=== PATIENT | male | born 1955 | race Caucasian/White ===

== ENCOUNTER 2019-12-05 17:23 | Inpatient (IN) | payer OTHER, SELFPAY ==
[~2019-12-05] VITALS: Ht 180.3 cm; Wt 118.4 kg
--- NOTE | 2019-12-05 17:23 | NUR ---
CALLED TO TENT TO SCREEN PT. PT HERE W/ ALSO SICK. PT WEARING MASK. PT STATES CAME HOME MONDAY & WENT "STRAIGHT TO BED." STATES HE'S BEEN "INCAPACITATED" FOR THE PAST 7 DAYS. C/O BODY ACHES, OCCAS VERGARA, FATIGUE, DRY MOUTH, "NOT A LOT" OF COUGH, PAIN UPON DEEP INSPIRATION, & DECREASED APPETITE. DENIES FEVER, CHILLS, SWEATS, RUNNY NOSE, SORE THROAT, SOB, LOSS OF TASTE OR SMELL, OR N/V/D. DENIES TRAVEL. DENIES KNOWN COVID EXPOURE. WAS TESTED [facility]DAY @ [facility] [place] BUT RESULT STILL PENDING. ORAL GZKJ=309.3, HR PER PLETH=83, ROOM AIR SAT 90-91%. PT LEFT OUTSIDE PENDING ROOM. I RESPONDED WEARING PPE.
[2019-12-05 18:45] VITALS: Ht 180.3 cm; Wt 118.4 kg
--- NOTE | 2019-12-05 18:49 | NUR ---
PT A/O X4. RESP E/U. PT STATES HAVING SOB X1 WEKK AND WANTS TO BE CHECKED FOR COVID. NAD NOTED AT THIS TIME.
--- NOTE | 2019-12-05 19:39 | NUR ---
ASSUNING CARE OF PT AT THIS TIME. PT AWAKE AND ALERT. AA/OX4. RESP EVEN AND UNLABORED. DENIES CHEST PAIN OR SOB. LUNGS CTA. PT SAT 91% RA PER DR CELY INTERIANO ORDER KEEP PT ON RA FOR BLOOD GAS ORDER. PT ON MONITOR. CALL LIGHT WITH IN REACH. WILL CONT TO MONITOR.
[2019-12-05 20:10] LABS: PLATELET COUNT 177 x10^3mcL (130-400); RED CELL DISTRIBUTION WIDTH 13.2 % (11.5-14.5)
[2019-12-05 20:15] LABS: BASOPHIL % 0 % (0-2)
[2019-12-05 20:17] LABS: CALCIUM 8.4 mg/dL (8.5-10.1); CARBON DIOXIDE 25.1 mmol/L (21-32); CHLORIDE SERUM 100 mmol/L (98-107); CREATININE SERUM 1.1 mg/dL (0.7-1.3); GFR1 > 60 mL/min; GLUCOSE SERUM 98 mg/dL (74-106); POTASSIUM SERUM 3.6 mmol/L (3.5-5.1); SODIUM SERUM 136 mmol/L (136-145)
[2019-12-05 20:29] LABS: ALKALINE PHOSPHATASE 79 U/L (46-116); ALT/SGPT 33 U/L (16-63); AST/SGOT 53 U/L (15-37); BILIRUBIN TOTAL 0.73 mg/dL (0.20-1.00); LACTIC DEHYDROGENASE (LDH) 500 U/L (100-190); TOTAL PROTEIN, SERUM 7.4 g/dL (6.4-8.2)
[2019-12-05 20:35] LABS: ALBUMIN 2.9 g/dL (3.4-5.0)
--- NOTE | 2019-12-05 21:21 | NUR ---
PT AWAKE AND ALERT. RESP EVEN AND UNLABORED. PT DENIES CHEST PAIN OR SOB AT THIS TIME. PT GIVEN URINAL FOR URINE COLLECTION. PT ON FULL CM. IV INSERTED. SWABBED PER MD ORDER. AA/OX4. PT ON 4L NC NOW O2 SAT IS 95% MD AWARE. WILL CONT TO MONITOR.
--- NOTE | 2019-12-06 00:30 | NUR ---
PT RESTING IN POSITION OF COMFORT. AWAKE AND ALERT. RESP EVEN AND UNLABORED. PT ON FULL CM. PT ON 4L NC. MD AWARE. PT SPEAKING FULL AND COMPLETE SENTENCES. CALL LIGHT WITH IN REACH. WILL CONT TO MONITOR.
--- NOTE | 2019-12-06 00:35 | NUR ---
PT STILL UNABLE TO VOID. AWARE.
[2019-12-06 01:32] LABS: MAGNESIUM 2.5 mg/dL (1.8-2.4); PHOSPHOROUS 3.4 mg/dL (2.5-4.9)
[2019-12-06 01:45] LABS: CHOLESTEROL/HDL RATIO 4.2
--- NOTE | 2019-12-06 02:01 | NUR ---
PT RESTING IN POSITION OF COMFORT. EASILY AOUSABLE. AA/OX4. KALEY EVEN AND UNLABORED. MEDICATIONS GIVEN PER EMAR. PT ON FULL CM. PT ON 4L NC. WILL CONT TO MONITOR.
[2019-12-06 02:58] LABS: UA SPECIFIC GRAVITY >=1.030 (1.005-1.035); microscopic required? YES; urine erythrocyte NEGATIVE (NEGATIVE)
--- NOTE | 2019-12-06 03:06 | NUR ---
PT AWAKE AND ALERT. RESP EVEN AND U NLABORED. AA/OX4. REQUESTING FOR LIGHTS TO BE TURNED OFF. LIGHTS DIMMED. PT ON FULL CM. CALL LIGHT WITH IN REACH. DENIES CHEST PAIN, SOB AT THIS TIME. PT SPEAKING FULL AND COMPLETE SENTENCES. WILL CONT TO MONITOR.
--- NOTE | 2019-12-06 03:30 | NUR ---
CALLED TELE TO GIVE REPORT TOLD ANTHONY IRBY IS BUSY IN A PT ROOM PLEASE CALL BACK IN 10 MINS. WILL CONT TO MONITOR.
--- NOTE | 2019-12-06 03:45 | NUR ---
REPORT CALLED TO ANTHONY IRBY TO ASSUME CARE OF PT.
[2019-12-06 04:17] VITALS: BP 129/70
[2019-12-06 04:31] LABS: AMPHETAMINE QUAL UR NONE DETECTED (See below)
--- NOTE | 2019-12-06 04:32 | NUR ---
Admitted this 64y/o male from ED via [facility]. Alert and oriented x4. No SOB noted. On 4lpm via n/c. Denies pain. Denies n/v. Admission assessment done. Tele #41, NSR. Droplet isolation observed. Call light within reach.
[2019-12-06 07:24] LABS: BASOPHIL % 0.1 % (0-2); PLATELET COUNT 175 x10^3mcL (130-400)
[2019-12-06 07:51] LABS: CALCIUM 7.9 mg/dL (8.5-10.1); CARBON DIOXIDE 23.7 mmol/L (21-32); CHLORIDE SERUM 101 mmol/L (98-107); CREATININE SERUM 0.8 mg/dL (0.7-1.3); GFR1 > 60 mL/min; GLUCOSE SERUM 97 mg/dL (74-106); POTASSIUM SERUM 3.8 mmol/L (3.5-5.1); SODIUM SERUM 137 mmol/L (136-145)
[2019-12-06 08:00] LABS: ALKALINE PHOSPHATASE 68 U/L (46-116); ALT/SGPT 32 U/L (16-63); AST/SGOT 51 U/L (15-37); BILIRUBIN DIRECT 0.28 mg/dL (0.0-0.2); BILIRUBIN TOTAL 0.7 mg/dL (0.20-1.00); MAGNESIUM 2.3 mg/dL (1.8-2.4); PHOSPHOROUS 2.7 mg/dL (2.5-4.9); TOTAL PROTEIN, SERUM 6.6 g/dL (6.4-8.2)
[2019-12-06 08:05] LABS: ALBUMIN 2.6 g/dL (3.4-5.0); C REACTIVE PROTEIN 16.3 mg/dL (<=0.9)
--- NOTE | 2019-12-06 08:30 | NUR ---
PT ENDORSED BY NOC SHIFT RN, PT AXOX4. NO S/S OF DISTRESS OR DISCOMFOT. BREATHING EVEN ON 4LNC, SPO2 98% DIM BASES. SOB WITH AMBULATION. RAC 20G PATENT, INTACT. TELE 41 SR. BED IN LOW POSITION , BEDRAILS UPX2, CALL LIGHT WITHIN REACH.
[2019-12-06 09:35] VITALS: BP 116/71
--- NOTE | 2019-12-06 12:46 | NUR ---
PT RESTING. EYES CLOSED. NO S/S OF DISTRESS OR DISCOMFORT. BREATHING EVEN AND UNLABORED 4L NC SPO2 96% TELE 41 SR. IV PATENT, FLUSHED. BED IN LOW POSITION, BEDRAILS UPX2, CALL LIGHT WITHIN REACH.
[2019-12-06 13:20] VITALS: BP 132/81
--- NOTE | 2019-12-06 14:37 | NUR ---
RECEIVED PT LYING IN BED, AAOX4. NO C/O SOB. ON 4LPM/NC. DENIES CHEST PAIN/PRESSURE, SR ON THE MONITOR, HR AT 72. DENIES ABDOMINAL DISCOMFORT. IV SITE PATENT AND INTACT. SIDE RAILS UPX2. CALL LIGHT ON REACH. WILL CONT TO MONITOR
[2019-12-06 17:14] VITALS: BP 119/63
--- NOTE | 2019-12-06 18:30 | NUR ---
PT LYING IN BED, NO C/O PAIN AND SOB. IV SITE PATENT AND INTACT. NEEDS ARE ATTENDED. CALL LIGHT ON REACH. WILL CONT TO MONITOR
--- NOTE | 2019-12-06 19:02 | NUR ---
ENDROSED TO INCOMING NURSE BARBARA FOR CONTINUITY OF CARE
--- NOTE | 2019-12-06 19:10 | NUR ---
RECEIVED PATIENT FROM PREVIOUS SHIFT NURSE. PATIENT IN NO ACUTE DISTRESS. AWAKE, ALERT AND ORIENTED X4. TELE #[address], NSR. PATIENT HAS EVEN AND UNLABORED BREATHING. DENIES ANY SOB. INSTRUCTED THE PATIENT ON SOME BREATHING MEASURES TO RELIEVE IF HE BEGINS TO FEEL SOB. ON 4L NC. NO C/O PAIN AT THIS MOMENT. PATIENT ALSO DENIES ANY CHEST PAON OR CHEST PRESSURE. RAC WNL. NO ERYTHEMA/EDEMA AT IV SITE. BED IN LOWEST POSITION. CALL LIGHT WITHIN REACH.
[2019-12-07] VITALS (7 sets, daily range): BP systolic 105–145; BP diastolic 56–77
--- NOTE | 2019-12-07 01:50 | NUR ---
REMAINS IN NO ACUTE DISTRESS. PATIENT SLEEPING COMFORTABLY. NO C/O PAIN AT THIS MOMENT. EVEN AND UNLABORED BREATHING, NASAL CANULA IN PLACE. NO SIGN OF SOB NOTED. BED IN LOWEST POSITION. CALL LIGHT WITHIN REACH.
--- NOTE | 2019-12-07 06:27 | NUR ---
PATIENT REMAINS IN NO ACUTE DISTRESS. SLEEPING COMFORTABLY. EVEN AND UNLABORED BREATHING. NO C/O OF PAIN AT THIS MOMENT. VERGARA RELIEVED. TOLERATED MEDICATIONS WELL. WILL ENDORSE CARE TO ONCOMING SHIFT. WILL CONTINUE TO MONITOR.
[2019-12-07 08:37] LABS: BASOPHIL % 0.2 % (0-2); PLATELET COUNT 221 x10^3mcL (130-400); RED CELL DISTRIBUTION WIDTH 13.4 % (11.5-14.5)
[2019-12-07 09:10] LABS: C REACTIVE PROTEIN 6.5 mg/dL (<=0.9); CALCIUM 7.8 mg/dL (8.5-10.1); CARBON DIOXIDE 25.7 mmol/L (21-32); CHLORIDE SERUM 105 mmol/L (98-107); CREATININE SERUM 0.8 mg/dL (0.7-1.3); GFR1 > 60 mL/min; GLUCOSE SERUM 148 mg/dL (74-106); MAGNESIUM 2.4 mg/dL (1.8-2.4); PHOSPHOROUS 2.9 mg/dL (2.5-4.9); POTASSIUM SERUM 3.9 mmol/L (3.5-5.1); SODIUM SERUM 139 mmol/L (136-145)
--- NOTE | 2019-12-07 09:10 | NUR ---
SEEN IN BED AAOX4. MILD SOB ON ACTIVITY PER PATIENT. ONT SHAYY#41 NSR. DENIES PAIN. DIMINISHED LUNG SOUND TO BASES. ON 3LPM N/C, O2SAT 93%. FINISHED 100% OF REGULAR DIET. S/L TO RAC FLUSHED PATENT. NOTED YELLOW URINE IN COLOR VIA URINAL. PLAN OF CARE DISCUSSED, CALL LIGHT PLACED WITHIN EASY REACH,SIDERAILS UP X2. ON CONTACT/DROPLET ISOLATION FOR POSITIVE COVID-19.
--- NOTE | 2019-12-07 12:05 | NUR ---
I.S. PROVIDED AND INSTRUCTED TO USE 10X EVERY HOUR WHEN AWAKE. PATIENT DEMONSTRATED AND VERBALIZED UNDERSTANDING.
--- NOTE | 2019-12-07 18:12 | NUR ---
NO RESP DISTRESS THROUGHOUT SHIFT. AFEBRILE. TYLENOL 650MG PO GIVEN FOR HEADACHE. ALL SCHEDULED MEDS GIVEN. REMAINS ON 3LPM N/C, O2SAT 92%-93%.
--- NOTE | 2019-12-07 19:25 | NUR ---
RECEIVED PATIENT FROM PREVIOUS SHIFT NURSE. PATIENT IN NO ACUTE DISTRESS. AWAKE, ALERT AND ORIENTED X4. PATIENT DENIES ANY PAIN, CHEST PAIN/CHEST PRESSURE, OR SOB AT THIS MOMENT. TELE #[address], NSR. HR 61. 3L NC IN PLACE, EVEN AND UNLABORED BREATHING. NO C/O VERGARA AT THIS MOMENT, NO DIZZINESS. RAC IV WNL, DRESSING CDI. NO ERYTHEMA/EDEMA AT IV SITE. BED IN LOWEST POSITION. CALL LIGHT WITHIN REACH.
--- NOTE | 2019-12-08 00:53 | NUR ---
PATIENT REMAINS IN NO DISTRESS. CURRENTLY SLEEPING COMFORTABLY. EVEN AND UNLABORED BREATHING, 3L NC. TELE #[address], HR 55. WILL CONTINUE TO MONITOR.
[2019-12-08 04:36] VITALS: BP 130/77
--- NOTE | 2019-12-08 06:35 | NUR ---
TOLERATED MEDICATIONS WELL. NO C/O VERGARA AT THIS MOMENT. WILL ENDORSE CARE TO ONCOMING SHIFT NURSE. WILL CONTINUE TO MONITOR.
[2019-12-08 08:26] LABS: BASOPHIL % 0.3 % (0-2); PLATELET COUNT 269 x10^3mcL (130-400); RED CELL DISTRIBUTION WIDTH 12.8 % (11.5-14.5)
[2019-12-08 08:46] VITALS: BP 107/72
[2019-12-08 09:06] LABS: CALCIUM 8.3 mg/dL (8.5-10.1); CHLORIDE SERUM 105 mmol/L (98-107); CREATININE SERUM 0.7 mg/dL (0.7-1.3); GFR1 > 60 mL/min; GLUCOSE SERUM 119 mg/dL (74-106); POTASSIUM SERUM 4.4 mmol/L (3.5-5.1); SODIUM SERUM 138 mmol/L (136-145)
--- NOTE | 2019-12-08 09:20 | NUR ---
STATED FEELING BETTER TODAY. NO SOB NOTED ON O2 3LPN N/C. STATED DRY COUGH SUBSIDED. ON TELE#41 SB HR=58. DENIES PAIN. STATED HAD GOOD APPETITE. BRP. SL TO RAC FLUSEHD APTENT. PLAN OF CARE DISCUSSED. CALL LIGHT PLACED WITHIN EASY REACH. SIDERAILS UP X2.
--- NOTE | 2019-12-08 10:00 | NUR ---
O2 N/C REMOVED, O2SAT CHECKED ON ROOM AIR 92%. NO SOB OR RESP DISTRESS NOTED. WILL CONTINUE TO MONITOR.
[2019-12-08 12:03] VITALS: BP 117/71
--- NOTE | 2019-12-08 14:00 | NUR ---
COVID-19 TEST OBTAINED FROM LEFT NARE, SENT TO LAB. PENDING RESULT.
[2019-12-08 16:43] VITALS: BP 96/69
--- NOTE | 2019-12-08 18:46 | NUR ---
NO ANY DISTRESS THROUGHOUT SHIFT. VSS. DENIES PAIN. O2SAT 93%-94% ON ROOM AIR. ALL SCHEDULED MEDS GIVEN. ENCOURAGED TO USE I.S. WHEN AWAKE EVERY HOUR. BRP.
--- NOTE | 2019-12-08 19:25 | NUR ---
RECEIVED PATIENT FROM PREVIOUS SHIFT NURSE. PATIENT IN NO ACUTE DISTRESS. PATIEN IN BED COMFORTABLY. NO C/O PAIN, CHEST PAIN OR CHEST PRESSURE. EVEN AND UNLABORED BREATHING, ON ROOM AIR. NO C/O SOB. RAC IV WNL. BED IN LOWEST POSITION. CALL LIGHT WITHIN REACH.
[2019-12-08 20:17] VITALS: BP 128/68
--- NOTE | 2019-12-09 01:05 | NUR ---
REMAINS IN NO ACUTE DISTRESS. NO FURTHER C/O VERGARA. EVEN AND UNLABORED BREATHING, ROOM AIR. TELE #[address] BED IN LOWEST POSITION. CALL LIGHT WITHIN REACH.
[2019-12-09 04:29] VITALS: BP 115/70
--- NOTE | 2019-12-09 06:22 | NUR ---
PATIENT SLEEPING COMFORTABLY. NO C/O VERGARA AT THIS MOMENT. ATTENDED TO ALL NEEDS. TOLERATED MEDS WELL. URINAL EMPTIED. WILL ENDORSE CARE TO ONCOMING SHIFT. WILL CONTINUE TO MONITOR.
[2019-12-09 09:06] VITALS: BP 117/79
[2019-12-09] MEDS ORDERED: ZITHROMAX TRI-500 MG PO (10:53)
[2019-12-09] MEDS ORDERED: MEDROL DOSEPAK4 MG PO (10:53)
[2019-12-09] MEDS ORDERED: ASPIRIN CHILDRE81 MG PO (11:00)
[2019-12-09 12:29] VITALS: BP 118/71
[2019-12-09 15:45] VITALS: BP 118/71
--- NOTE | 2019-12-09 16:45 | NUR ---
D/C INSTRUCTION GIVEN AND VERBALIZED W/ UNDERSTANDING. HL REMOVED ON THE RT AC AND NO BLEEDING NOTED.
--- NOTE | 2019-12-09 18:40 | NUR ---
D/C TO HOME IN STABLE CONDITION AND NO SIGNS OF SOB NOTED.
== END 2019-12-09 18:40 | disposition home or self-care (01) | DRG 177 ==
LOC: ED 17:23 → DU 22:24
PROVIDERS: Emergency Medicine; ADMIT Family Medicine; ATTEND Family Medicine
DX: U07.1 COVID-19 (principal); J12.89 Other viral pneumonia; J96.01 Acute respiratory failure with hypoxia; E44.0 Moderate protein-calorie malnutrition; F17.290 Nicotine dependence, other tobacco product, uncomplicated; R74.0 Nonspecific elevation of levels of transaminase and lactic acid dehydrogenase [LDH]; E66.9 Obesity, unspecified; Z68.36 Body mass index [BMI] 36.0-36.9, adult
CPT/HCPCS: 83880; 85378; 87804; G0378; J0456; J0696; J1100; J1650; J7030; J7040; J7050; J7060; Q0092; U0003-CS